=== PATIENT | female | born 1990 | race Caucasian/White ===

== ENCOUNTER 2018-05-21 09:53 | Inpatient (IN) | payer BC ==
[~2018-05-21] VITALS: Ht 172.7 cm; Wt 90.9 kg
[2018-06-15] VITALS (40 sets, daily range): BP systolic 103–159; BP diastolic 55–94; PULSE 71–139; TEMP 97.9–99.1
[2018-06-15 09:04] LABS: BASO % 0.3 % (0.0-2.0); EOS # 0.1 (0.0-0.7); EOS % 0.6 % (0-4.0); GRAN # 6.9 (1.4-6.5); GRAN % 73.2 % (42.2-75.2); HEMOGLOBIN 11.6 g/dl (12.5-16.0); LYMPH # 1.7 (1.2-3.4); LYMPH % 18.3 % (20.0-51.0); MEAN CELL VOLUME 85 fl (80.0-100.0); MEAN CORPUSCULAR HEMOGLOBIN 28 pg (27.0-31.0); MEAN CORPUSCULAR HGB CONC 33 g/dl (33.0-37.0); MONO # 0.6 (0.1-0.6); MONO % 6.8 % (1.7-9.3); PLATELET COUNT 237 K/mm3 (130-400); RED BLOOD COUNT 4.19 M/mm3 (4.10-5.30)
[2018-06-15 09:09] LABS: HEMATOCRIT 35.5 % (37.0-47.0)
[2018-06-15] MEDS ORDERED: PRENATAL 191 CTB PO (18:04)
[2018-06-16] VITALS: BP 126/75; PULSE 68; TEMP 98.5
[2018-06-16 04:00] VITALS: BP 125/76; PULSE 70; TEMP 98.2
[2018-06-16 08:25] VITALS: BP 135/83; PULSE 85; TEMP 99.2
[2018-06-16 12:00] VITALS: BP 135/80; PULSE 80; TEMP 98.1
[2018-06-16 16:50] VITALS: BP 123/69; PULSE 76; TEMP 97.6
[2018-06-16 21:45] VITALS: BP 133/84; PULSE 83; TEMP 98.4
[2018-06-17 07:00] VITALS: BP 130/77; PULSE 77; TEMP 97.5
[2018-06-17] MEDS ORDERED: MOTRIN 800800 MG/TAB PO (08:08)
[2018-06-17] MEDS ORDERED: PERCOCET 325 MG1 TA2 PO (08:08)
== END 2018-06-17 14:55 | disposition home or self-care (01) | DRG 775 ==
LOC: EDSTATUS 06-10 06:31 → LDRO 06-10 09:53 → LDR 06-15 06:31 → OB 06-15 07:16
PROVIDERS: Obstetrics & Gynecology
PROC: 10D07Z6 Extraction of Products of Conception, Vacuum, Via Natural or Artificial Opening (ICD-10-PCS; principal; 2018-06-15)
PROC: 0KQM0ZZ Repair Perineum Muscle, Open Approach (ICD-10-PCS; 2018-06-15)
PROC: 10907ZC Drainage of Amniotic Fluid, Therapeutic from Products of Conception, Via Natural or Artificial Opening (ICD-10-PCS; 2018-06-15)
PROC: 3E033VJ Introduction of Other Hormone into Peripheral Vein, Percutaneous Approach (ICD-10-PCS; 2018-06-15)
DX: O48.0 Post-term pregnancy (principal); O70.1 Second degree perineal laceration during delivery; Z37.0 Single live birth; Z3A.40 40 weeks gestation of pregnancy
CPT/HCPCS: J2405; J2590; J2795; J7120

== ENCOUNTER 2021-02-11 06:25 | Inpatient (IN) | payer BC ==
[~2021-02-11] VITALS: Ht 172.7 cm; Wt 99.5 kg
[2021-02-11] VITALS (33 sets, daily range): BP systolic 105–144; BP diastolic 55–86; PULSE 76–115; TEMP 98–98.9
--- NOTE | 2021-02-11 06:30 | NUR ---
0630- 40.1, G2L1 arrives on unit for scheduled IOL. Ambulatory to LDR5 with spouse. Oriented to room and POC. Patient reports normal movement, denies any LOF, VB, or contractions. Changes into clean gown. 0639- EFM placed and tracing well. Assessment completed. VS obtanied. 0645- IV to left FA. Routine labs obtained via IV site. IVF infusing. 0700- SVE by this RN. See flowsheet. Pitocin explained and started at 2mu per orders. 0716- Dr. Warner to bedside, and reviews plan of care with pt and spouse who verbalize understanding. AROM at this time for small amount of clear fluids. SVE by Dr. Warner /2. Carmen care provided, pt wedge left.
[2021-02-11 07:36] LABS: BASO % 0.5 % (0.0-2.0); EOS % 0.5 % (0-4.0); GRAN # 5.5 (1.4-6.5); HEMOGLOBIN 11.1 g/dl (12.5-16.0); LYMPH % 24.2 % (20.0-51.0); MEAN CELL VOLUME 85 fl (80.0-100.0); MEAN CORPUSCULAR HEMOGLOBIN 27 pg (27.0-31.0); MEAN CORPUSCULAR HGB CONC 32 g/dl (33.0-37.0); MEAN PLATELET VOLUME 11.9 fl (7.4-10.4); MONO # 0.5 (0.1-0.6); MONO % 5.9 % (1.7-9.3); PLATELET COUNT 204 K/mm3 (130-400); RED BLOOD COUNT 4.15 M/mm3 (4.10-5.30); REDCELL DISTRIBUTION WIDTH-CV 13.2 % (11.5-14.5)
[2021-02-11 07:41] LABS: HEMATOCRIT 35.1 % (37.0-47.0)
--- NOTE | 2021-02-11 10:46 | NUR ---
1046- Patient reports increased rectal pressure. SVE C/+1. 1051- Dr. Warner notified. See physician notification. 1059- Dr. Wraner to bedside. Patient prepped and in footpates. Instructed on pushing with ctx. 1105- Patient begins to push with ctx with Dr. Warner at bedside. Strong maternal effort noted. Moves vertex well. 1120- MLE by Dr. Warner. Spontaneous vaginal delivery of viable male . To mother's chest where dried and stimulated by osiel PEREIRA. Pitocin paused. 1122- Cord clamped x2 and cut by father. Care of assumed by Vicky Wong RN. 1123- Spontaneous and intact delivery of placenta. Fundus firm, midline, lochia moderate. 2nd degree MLE repaired by Dr. Warner. Pitocin at 333ml/hr per protocol. 1135- Carmen care provided, pads changed, and ice pack to perineum. Fundus firm, midline, moderate lochia with [address] Warner at bedside and observes. Plan of care and safety precautions reviewed with patient and spouse who verbalize understanding. See doctor dictation, anesthesia record, and nurses notes. Patient denies questions or needs at this time.
--- NOTE | 2021-02-11 13:45 | NUR ---
Patient assisted to edge of bed. Epidural catheter removed. See flowsheet. Ambulatory to bathroom with SBA. Unable to void at this time. Pericare provided, gown changed, ice pack to perineum. Patient instructed to drink fluids and attempt void in 1 hour. To room 208. Oriented to room. Denies questions or needs. Call light within reach.
[2021-02-12 03:30] VITALS: BP 127/78; PULSE 78; TEMP 98
[2021-02-12 07:45] VITALS: BP 113/74; PULSE 78; TEMP 98.2
[2021-02-12] MEDS ORDERED: MOTRIN 800800 MG/TAB PO (09:06)
--- NOTE | 2021-02-12 09:46 | NUR ---
Initial visit; Parents thanked [employer] Representative for offering congratulations and God's blessings for the of their son. [employer] Customer Service Representative thanked family for choosing [facility].
[2021-02-12 16:00] VITALS: BP 128/82; PULSE 76; TEMP 98.1
[2021-02-12 20:40] VITALS: BP 137/82; PULSE 68; TEMP 98.6
[2021-02-13 07:00] VITALS: BP 116/75; PULSE 77; TEMP 98.2
== END 2021-02-13 11:40 | disposition home or self-care (01) | DRG 807 ==
LOC: LDR 06:25 → OB 08:59
PROVIDERS: ADMIT Obstetrics & Gynecology
PROC: 10E0XZZ Delivery of Products of Conception, External Approach (ICD-10-PCS; principal; 2021-02-11)
PROC: 10907ZC Drainage of Amniotic Fluid, Therapeutic from Products of Conception, Via Natural or Artificial Opening (ICD-10-PCS; 2021-02-11)
PROC: 0W8NXZZ Division of Female Perineum, External Approach (ICD-10-PCS; 2021-02-11)
PROC: 3E033VJ Introduction of Other Hormone into Peripheral Vein, Percutaneous Approach (ICD-10-PCS; 2021-02-11)
DX: O48.0 Post-term pregnancy (principal); Z37.0 Single live birth; O69.81X0 Labor and delivery complicated by cord around neck, without compression, not applicable or unspecified; O99.52 Diseases of the respiratory system complicating childbirth; J45.909 Unspecified asthma, uncomplicated; O99.02 Anemia complicating childbirth; D64.9 Anemia, unspecified; Z3A.40 40 weeks gestation of pregnancy
CPT/HCPCS: J2405; J2590; J7120

== ENCOUNTER → 2021-02-11 | Outpatient (CLI) | payer BC ==
[~2021-02-11] MED LIST: MOTRIN 800800 MG/TAB PO; PERCOCET 325 MG1 TA2 PO; PRENATAL 191 CTB PO
== END | disposition still patient (30) ==
LOC: ZCOL.LAB
DX: Z20.822 Contact with and (suspected) exposure to COVID-19 (principal)

== ENCOUNTER → 2021-02-18 | Outpatient (CLI) | payer BC ==
--- NOTE | 2021-02-18 14:38 | NUR ---
Pt, Shana Lindsay, presents for outpatient consult with 7 day old baby boy, Alex Lindsay, because Alex is not gaining weight yet. They were referred by Dr. Tavarez. She is accompanied by her spouse, Carmelo, as well. Alex was born on [birth year] and weighed 8#9.9oz (3910 gms). Discharge weight was 8#. He has been seen by Dr. Tavarez at the clinic and weights are reported by the pt to be 7#13oz on 02/15/21 and 7#12oz on 02/17/21. Today Alex weighs 7#12.4oz (3528 gms). After being seen in the clinic yesterday Alex has been bottle feed ~50-70 ml EBM every 3 hours. Pt is providing Alex all that she pumps every 3 hours. Pt presents the right breast to Alex initially, he is not very interested and when he tries to latch he mis-shapes the nipple to where the top edge is shorter than the bottom edge. He eventually latches onto the left breast and and then back to the right. Total milk transfer is 0.7oz (18 ml).
== END ==
LOC: LAC 11:13
DX: Z39.1 Encounter for care and examination of lactating mother (principal); Z71.89 Other specified counseling

== ENCOUNTER → 2021-02-22 | Outpatient (CLI) | payer BC ==
--- NOTE | 2021-02-22 15:30 | NUR ---
Pt, Shana Lindsay, presents for follow up consult with 11 day old baby boy, Alex Lindsay, to evaluate if milk transfer has improved. She is accompanied by her spouse. Alex was born on [birth year] and weighe 8#9.9 oz (3909 gms). Four day ago he weighed 7#12.4oz (3528 gms). Today he weighs 8#0.8oz (3652 gms). The family has followed the 3-step feeding plan, offering breast 2-3 times per day, bottle feeding 60-75ml q 3 hours, and pumping q 3 hours. Pt collects enough to cover the bottle feeding amounts. At this appointment Alex has a little trouble settling in, does not stay latched for more than a few minutes at a time before needing re-latched. After about 10 minutes cumulative on each breast, he has a weight gain of 8gms. Family will continue feeding plan. They have also worked with suck training and he accepts the finger further into his mouth and holds it better. LC discusses milk tongue tie and observation that Alex does not bring his tongue to a point when he extends it so tongue tie may be associated with that. Family will consider if they want to persue treatment for that. POC: Continue current feeding plan, increasing intake volume as Alex tolerates. Consider having tongue tie evaluated. F/U: Pending families desires as Alex gets stronger. Questions invited and answered.
== END ==
LOC: LAC 14:21
DX: Z39.1 Encounter for care and examination of lactating mother (principal); Z71.89 Other specified counseling